=== PATIENT | male | born 1955 | race Caucasian/White ===

== ENCOUNTER 2020-05-07 06:12 | Day surgery (SDC) | payer MEDICARE, MEDICAID ==
[~2020-05-07] VITALS: Ht 190.5 cm; Wt 127.0 kg
--- NOTE | ~2020-05-07 | OP ---
PATIENT NAME: SAHRA SALES MEDICAL RECORD: [id number] :55 LOCATION:D.OPS ADMISSION DATE: SURGEON: ZACKERY LOPEZ MD DATE OF OPERATION: 05/07/2020 PREOPERATIVE DIAGNOSIS: Chronic kidney disease V. POSTOPERATIVE DIAGNOSIS: Chronic kidney disease V. REFERRING PHYSICIAN: Elliott Mathews MD OPERATION PERFORMED: Creation of a left brachial to translocated basilic vein AV fistula with construction of a new more proximal arterial anastomosis and translocation of the basilic vein into a more anterior and superficial subcutaneous tunnel. SURGEON: Zackery Lopez MD ANESTHESIA: Regional nerve block and MAC per OCCUPATIONAL THERAPIST ASSISTANT. PREOPERATIVE NOTE: Mr. Sales is a 64-year-old male patient with chronic kidney disease, has had a brachiobasilic Cyndy type fistula created in the left arm, which has led to considerable dilatation of the basilic vein and he has returned to the operating room at this time as planned for a translocated basilic vein fistula creation. DESCRIPTION OF PROCEDURE: Under anesthesia, the patient was placed in supine position, prepped and draped in sterile manner. A long incision was made on the medial aspect of the arm and the basilic vein dissected free of the surrounding structures from the axilla, almost to the anastomosis with the brachial artery. Vessels were ligated and divided between 3-0 Vicryl ties and a few Hemoclips. The vein was divided and bevelled and then flushed with heparinized saline and clamped and the distal end clamped and ligated with 3-0 Vicryl. I made a subcutaneous tunnel, which arched anteriorly and was very superficial and then came back to the medial aspect of the arm where I constructed a new arterial anastomosis. The brachial artery at that level was exposed and controlled with Silastic loops occluded and the artery flushed with heparinized saline and the end of vein to side of artery anastomosis completed with 6-0 Prolene. When finished and the occluding loops were released, excellent flow developed immediately within the fistula. The wound was then irrigated with saline and then closed without the use of a drain with interrupted inverted 3-0 Vicryl and running intracuticular 4-0 Stratafix Dermabond glue and dressed with Maxorb AG, Tegaderm and Cavilon skin prep. The patient was discharged to home with a prescription for Ultracet and a followup appointment made for him to see me in my office the following week. TRANSINT:[id number] Voice Confirmation ID: [id number] DOCUMENT ID: [id number] OPERATIVE REPORT [id number] SAHRA SALES JAMES MD CC: ELLIOTT MATHEWS MD [id number] DICTATION DATE: 05/28/201654 MANUFACTURING PRODUCTION TECHNICIAN: 05/29/[address] [facility] 05/07/20 [place] [id number] [place] [id number]
[~2020-05-07 06:12] MED LIST: COLACE100 MG PO; FERROUS SULFAT325 MG PO; HYDROCODON-ACE1 EAC7 PO; LASIX40 MG PO; LIPITOR20 MG PO; MAGNESIUM OXID250 MG PO; NORVASC10 MG PO; OMEPRAZOLE20 M1 PO; RENVELA800 MG PO; ROCALTROL0.25 MCG PO; SODIUM BICARBO650 MG PO; TENORMIN100 MG PO; TRULICITY1.5 MG/0.5 SC; VERAPAMIL HCL80 MG PO; VITAMIN D-32000 UNI2 PO
[2020-05-07 06:42] LABS: ANION GAP 14.5 mmol/L (8-16); CALCIUM 8.3 mg/dL (8.5-10.1); CARBON DIOXIDE 25.9 mmol/L (21.0-32.0); CREATININE - SERUM 5.4 mg/dL (0.6-1.3); POTASSIUM - SERUM 4.4 mmol/L (3.5-5.1)
[2020-05-07 06:45] LABS: INR 0.97 (0.85-1.17); PROTIME 11.9 SECONDS (11.6-15.0)
[2020-05-07 07:11] LABS: BASOPHILS 0.5 % (0-2); HEMATOCRIT 29.9 % (42.0-54.0); HEMOGLOBIN 9.1 g/dL (13.5-17.5); IMMATURE GRANULOCYTES 0.2 % (0-5); LYMPHOCYTE ABS# 3.58 10x3/uL (1.32-3.57); LYMPHOCYTES 34.4 % (15-50); MCH 27.7 pg (26.0-34.0); MCHC 30.4 g/dL (31.0-37.0); MCV 91.2 fL (80.0-100.0); MEAN PLATELET VOLUME 10.6 fL (7.4-10.4); MONOCYTES 7.6 % (2-11); NEUTROPHIL ABS# 5.76 10x3/uL (1.78-5.38); NEUTROPHILS 55.3 % (40-80); RBC 3.28 10x6/uL (4.20-6.10); RDW 15.2 % (11.5-14.5); WBC 10.4 10x3/uL (4.8-10.8)
[2020-05-07 07:12] LABS: PLATELET COUNT 277 10x3/uL (130-400)
[2020-05-07 09:48] VITALS: Ht 190.5 cm; Wt 127.0 kg
--- NOTE | 2020-05-07 15:10 | NUR ---
9970 DR LOPEZ CALLED IN OR AND REQUESTED AN ORDER FOR D/C. STATED HE NEEDED A RX FOR PAIN AND WOULD HAVE TO WAIT
[2020-05-07] MEDS ORDERED: ULTRACET TABLE1 EAC1 PO (15:40)
== END 2020-05-07 16:00 | disposition home or self-care (01) ==
LOC: D.OPS 06:12
PROVIDERS: Surgery; ATTEND Internal Medicine Nephrology
DX: N18.5 Chronic kidney disease, stage 5 (principal)